=== PATIENT | male | born 1995 | race Hispanic/Latino ===

== ENCOUNTER 2017-07-19 02:11 | Inpatient (IN) | payer SELFPAY ==
[2017-07-19] MEDS ORDERED: NA CHLORIDE 0.9% 1,000 ML ONE (03:32)
[2017-07-19] MEDS ORDERED: ONDANSETRON 4 MG/2 ML VIAL ONE (03:32)
[2017-07-19] MEDS ORDERED: MORPHINE 4 MG/ML SYR ONE (03:32)
[2017-07-19 03:48] LABS: Absolute Lymphocytes (CBC) 0.7 K/uL (0.7-4.9); Absolute Monocytes 1.4 K/uL (0.1-1.3); Absolute Neutrophil 15.3 K/uL (1.8-8.0); Basophils % 0.4 % (0-1.3); Eosinophils % 0.2 % (0-4.4); Hematocrit 42.3 % (39.6-49.0); MCH 30.6 pg (27.0-35.0); MPV 10.3 fL (7.6-11.3); Monocytes % 7.9 % (3.3-12.3)
[2017-07-19 04:07] LABS: Bicarbonate 29 mEq/L (21-31); Glomerular Filtration Rate > 60 mL/min (>60); Glucose Level 127 mg/dL (65-120); Lipase 14 U/L (22-51); Potassium 3.6 mEq/L (3.6-5.0); Sodium Level 138 mEq/L (135-145)
[2017-07-19 04:13] LABS: ALT/SGPT 11 IU/L (10-60); AST/SGOT 16 IU/L (10-42); Albumin 4.4 g/dL (3.2-5.5); Amylase Level 65 U/L (28-100); BUN Blood Urea Nitrogen 11 mg/dL (6-20); Bilirubin Direct 0.2 mg/dL (0-0.2); Bilirubin Total 0.7 mg/dL (0.3-1.2); Glomerular Filtration Rate > 90 mL/min (=/>90); Protein, Total 7.4 g/dL (6.0-8.3)
[2017-07-19 04:24] LABS: Alkaline Phosphatase 112 IU/L (42-121)
[2017-07-19 05:28] LABS: Urine Amorphous Sediment 3+ /HPF (NONE SEEN); Urine Bacteria <20 /HPF (NONE SEEN); Urine Culture Reflex Order NOT NEEDED; Urine RBC <5 /HPF (NONE SEEN)
[2017-07-19 05:33] LABS: Blood Morphology Comment NOT SEEN (NOT SEEN); Platelet Estimate ADEQ
[2017-07-19 06:01] LABS: Urine Blood NEGATIVE (NEG); Urine Glucose NEGATIVE (NEG); Urine Protein NEGATIVE (NEG); Urine Specific Gravity 1.015 (1.005-1.030); Urine pH 7.5 (5.0-7.0)
--- NOTE | 2017-07-19 06:12 | ER ---
Nurse's Notes [facility] Name: Howard Diaz Jr Age: 22 yrs Sex: Male : 1995 Arrival Date: 07/19/2017 Time: 02:14 Bed 19 [facility] MD: Diagnosis: Diverticular disease of intestine Presentation: 07/19 02:19 Presenting complaint: Patient states: left lower quadrant pain X1 day. pt c/o N/V/D X1 ak1 day. Transition of care: patient was not received from another setting of care. Onset of symptoms was July 19, 2017. Care prior to arrival: None. 02:19 Method Of Arrival: Ambulatory ak1 02:19 Acuity: PETERSON 3 ak1 Historical: - Allergies: 02:20 No Known Allergies; ak1 - Home Meds: 02:20 None [Active]; ak1 - PMHx: 02:20 None; ak1 - PSHx: 02:20 Appendectomy; ak1 - Immunization history:: Adult Immunizations unknown. - Social history:: Smoking status: Patient uses tobacco products, smokes one-half pack cigarettes per day. Screenin:30 Abuse screen: Denies threats or abuse. Denies injuries from another. Nutritional lk1 screening: No deficits noted. Tuberculosis screening: No symptoms or risk factors identified. Fall Risk None identified. Assessment: 02:45 General: Appears in no apparent distress. Behavior is calm, cooperative, appropriate lk1 for age. Pain: Complains of pain in left lower quadrant Pain currently is 7 out of 10 on a pain scale. Quality of pain is described as crampy. Neuro: Level of Consciousness is awake, alert, obeys commands, Oriented to person, place, time, situation. Cardiovascular: Heart tones S1 S2 present Capillary refill is brisk Patient's skin is warm and dry. Respiratory: Airway is patent Respiratory effort is even, unlabored, Respiratory pattern is regular, symmetrical, Breath sounds are clear bilaterally. GI: Abdomen is non-distended, obese, Bowel sounds present X 4 quads. Abdomen is tender to palpation in suprapubic area and left lower quadrant Reports cramping. 07:15 Reassessment: Reassessment: Pt is resting in bed with guest at the bedside. jtb Respirations even and unlabored, no signs of distress noted. 08:15 Reassessment: Pt is resting in bed with eyes closed with guest in the bed with them. jtb Respiration even and unlabored, no signs of distress noted. Vital Signs: 02:20 BP 157 / 98; Pulse 88; Resp 18; Temp 98.9(O); Pulse Ox 98% on R/A; Weight 113.4 kg (R); ak1 Height 6 ft. 0 in. (182.88 cm) (R); Pain 9/10; 03:30 BP 141 / 95; Pulse 83; Resp 16; Pulse Ox 98% on R/A; lk1 05:00 BP 124 / 70; Pulse 83; Resp 16; Pulse Ox 95% on R/A; Pain 0/10; lk1 06:00 BP 132 / 63; Pulse 88; Resp 15; Pulse Ox 97% on R/A; lk1 06:30 BP 149 / 81; Pulse 84; Resp 16; Pulse Ox 97% on R/A; lk1 07:23 BP 134 / 76; Pulse 89; Resp 16; Pulse Ox 96% on R/A; mh5 07:30 BP 122 / 73; Pulse 88; Resp 16 S; Pulse Ox 94% ; jtb 02:20 Body Mass Index 33.91 (113.40 kg, 182.88 cm) ak1 05:00 sleeping lk1 ED Course: 02:14 Patient arrived in ED. al2 02:19 Triage completed. ak1 02:20 Arm band placed on Patient placed in an exam room, on a stretcher, Patient notified of ak1 wait time. 02:23 Manuelito Benavides MD is Attending Physician. gs 02:24 Matthew Gramajo PA is PHCP. cp 03:11 Soumya Elizabeth, ZAKI is Primary Nurse. lk1 03:15 Inserted saline lock: 20 gauge in right antecubital area, using aseptic technique. lk1 Blood collected. 03:30 Patient has correct armband on for positive identification. Bed in low position. Call lk1 light in reach. Side rails up X 1. Adult w/ patient. 06:11 Mat Ewing MD is Hospitalizing Provider. gs 07:15 Pulse ox on. NIBP on. jtb 08:15 No provider procedures requiring assistance completed. Patient admitted, IV remains in jtb place. Administered Medications: 03:00 Drug: morphine 4 mg Route: IVP; Site: right antecubital; lk1 03:40 Follow up: Response: No adverse reaction; Pain is decreased lk1 03:15 Drug: NS 0.9% 1000 ml Route: IV; Rate: 1 bolus; Site: right antecubital; lk1 04:10 Follow up: Response: No adverse reaction; IV Status: Completed infusion lk1 03:15 Drug: Zofran 4 mg Route: IVP; Site: right antecubital; lk1 03:40 Follow up: Response: No adverse reaction; Marked relief of symptoms; Nausea is decreasedk1 06:15 Drug: Rocephin - (cefTRIAXone) 1 grams Route: IVPB; Infused Over: 30 mins; Site: right lk1 antecubital; 06:35 Follow up: Response: No adverse reaction; IV Status: Completed infusion lk1 06:36 Drug: Flagyl 500 mg Volume: 100 ml; Route: IVPB; Rate: 200 ml/hr; Infused Over: 30 lk1 mins; Site: right antecubital; Outcome: 06:11 Decision to Hospitalize by Provider. 08:15 Admitted to Med/surg accompanied by tech, via wheelchair, room 211, with chart, Report jtb called to ZAKI Burciaga 08:15 Condition: stable 08:15 Instructed on the need for admit, Demonstrated understanding of instructions. 08:23 Patient left the ED. jtb Signatures: Ellen Rivera, RN RN ak1 Matthew Gramajo PA PA cp Kluge, Leah, RN RN lk1 Sanna Argueta 5 Manuelito Benavides MD MD gs Love, Angelica al2 Bryson, James j Corrections: (The following items were deleted from the chart) 08:21 08:15 Reassessment: Pt is resting in bed with eyes closed with significant other in the jtb bed with them. Respiration even and unlabored, no signs of distress noted. jtb 08:21 08:15 Reassessment: jtb jtb
--- NOTE | 2017-07-19 06:12 | EDPHYS ---
Physician Documentation [facility] Name: Howard Diaz Jr Age: 22 yrs Sex: Male : 1995 Arrival Date: 07/19/2017 Time: 02:14 Bed 19 Private MD: ED Physician Manuelito Benavides HPI: 07/19 02:51 This 22 yrs old Male presents to ER via Ambulatory with complaints of cp Abdominal Pain. 02:51 The patient presents with abdominal pain in the lower abdomen, right side worse than cp left. Onset: The symptoms/episode began/occurred and became worse today, upon awakening this morning. Associated signs and symptoms: Pertinent positives: diarrhea, vomiting, Pertinent negatives: constipation. Historical: - Allergies: 02:20 No Known Allergies; ak1 - Home Meds: 02:20 None [Active]; ak1 - PMHx: 02:20 None; ak1 - PSHx: 02:20 Appendectomy; ak1 - Immunization history:: Adult Immunizations unknown. - Social history:: Smoking status: Patient uses tobacco products, smokes one-half pack cigarettes per day. ROS: 02:55 Constitutional: Negative for body aches, chills, fever, poor PO intake. cp 02:55 Eyes: Negative for injury, pain, redness, and discharge. cp 02:55 ENT: Negative for drainage from ear(s), ear pain, sore throat, difficulty swallowing, difficulty handling secretions. 02:55 Cardiovascular: Negative for chest pain, edema, palpitations. 02:55 Respiratory: Negative for cough, shortness of breath, wheezing. 02:55 Abdomen/GI: Positive for abdominal pain, vomiting, diarrhea, of the right lower quadrant and left lower quadrant, left worse than right, Negative for constipation. 02:55 Back: Negative for pain at rest, pain with movement, radiated pain. 02:55 : Negative for urinary symptoms, testicular pain 02:55 Skin: Negative for cellulitis, rash. 02:55 Neuro: Negative for altered mental status, dizziness, headache, weakness. 02:55 All other systems are negative. Exam: 03:03 Constitutional: The patient appears in no acute distress, alert, awake, non-toxic, well cp developed, well nourished. 03:03 Head/Face: Normocephalic, atraumatic. Eyes: Pupils equal round and reactive to light, cp extra-ocular motions intact. Lids and lashes normal. Conjunctiva and sclera are non-icteric and not injected. Cornea within normal limits. Periorbital areas with no swelling, redness, or edema. ENT: Nares patent. No nasal discharge, no septal abnormalities noted. Tympanic membranes are normal and external auditory canals are clear. Oropharynx with no redness, swelling, or masses, exudates, or evidence of obstruction, uvula midline. Mucous membranes moist. Chest/axilla: Normal chest wall appearance and motion. Nontender with no deformity. No lesions are appreciated. 03:03 Cardiovascular: Rate: normal, Rhythm: regular. 03:03 Respiratory: the patient does not display signs of respiratory distress, Respirations: normal, no use of accessory muscles, no retractions, no splinting, no tachypnea, labored breathing, is not present, Breath sounds: are clear throughout, no decreased breath sounds, no stridor, no wheezing. 03:03 Abdomen/GI: Inspection: abdomen appears normal, Bowel sounds: active, all quadrants, Palpation: soft, in all quadrants, moderate abdominal tenderness, in the right lower quadrant, severe abdominal tenderness, in the left lower quadrant, rebound tenderness, is not appreciated, involuntary guarding, is elicited in the left lower quadrant. 03:03 Back: pain, is absent, ROM is normal. 03:03 : Male external genitalia: tenderness, is not appreciated. 03:03 Skin: cellulitis, is not appreciated, no rash present. 03:03 Neuro: Orientation: to person, place \T\ time. Mentation: lucid, able to follow commands, Cerebellar function: is grossly normal, Motor: moves all fours, strength is normal, Sensation: is normal. Vital Signs: 02:20 BP 157 / 98; Pulse 88; Resp 18; Temp 98.9(O); Pulse Ox 98% on R/A; Weight 113.4 kg (R); ak1 Height 6 ft. 0 in. (182.88 cm) (R); Pain 9/10; 03:30 BP 141 / 95; Pulse 83; Resp 16; Pulse Ox 98% on R/A; lk1 05:00 BP 124 / 70; Pulse 83; Resp 16; Pulse Ox 95% on R/A; Pain 0/10; lk1 06:00 BP 132 / 63; Pulse 88; Resp 15; Pulse Ox 97% on R/A; lk1 06:30 BP 149 / 81; Pulse 84; Resp 16; Pulse Ox 97% on R/A; lk1 07:23 BP 134 / 76; Pulse 89; Resp 16; Pulse Ox 96% on R/A; mh5 07:30 BP 122 / 73; Pulse 88; Resp 16 S; Pulse Ox 94% ; jtb 02:20 Body Mass Index 33.91 (113.40 kg, 182.88 cm) ak1 05:00 sleeping lk1 MDM: 02:27 Patient medically screened. cp 03:00 Differential diagnosis: appendicitis, cholecystitis, Cholelithiasis, diverticulitis, cp gastritis, GI Bleed, pancreatitis, Testicular Torsion, Ureterolithiasis, urinary tract infection. 07/19 02:53 Order name: Amylase, Serum cp 07/19 02:53 Order name: Basic Metabolic Panel 07/19 02:53 Order name: CBC with Diff cp 07/19 02:53 Order name: Creatinine for Radiology 07/19 02:53 Order name: Hepatic Function cp 07/19 02:53 Order name: Lipase cp 07/19 02:53 Order name: Urine Microscopic Only cp 07/19 03:58 Order name: CBC with Automated Diff; Complete Time: 06:04 EDMS 07/19 04:16 Interpretation: Normal except: WBC 17.4; HARRY% 87.5; LYM% 4.0; NEUT A 15.3. cp 07/19 04:07 Order name: Basic Metabolic Panel; Complete Time: 06:04 EDMS 07/19 04:07 Order name: Lipase; Complete Time: 06:04 EDMS 07/19 04:08 Order name: Creatinine (Radiology Only); Complete Time: 04:16 EDMS 07/19 04:13 Order name: Liver (Hepatic) Function; Complete Time: 06:04 EDMS 07/19 04:13 Order name: Amylase Level; Complete Time: 06:04 EDMS 07/19 04:50 Order name: Urine Dipstick--Ancillary (enter results) 07/19 02:53 Order name: IV Saline Lock; Complete Time: 03:28 cp 07/19 02:53 Order name: Labs collected and sent; Complete Time: 03:28 cp 07/19 02:53 Order name: Urine Dipstick-Ancillary (obtain specimen); Complete Time: 04:49 cp 07/19 04:16 Order name: CT Abd/Pelvis - W/Contrast cp 07/19 05:29 Order name: Urine Microscopic Only; Complete Time: 06:04 EDMS 07/19 05:33 Order name: Manual Differential; Complete Time: 06:04 EDMS 07/19 06:02 Order name: Urine Dipstick-Ancillary; Complete Time: 06:04 EDMS Administered Medications: 03:00 Drug: morphine 4 mg Route: IVP; Site: right antecubital; lk1 03:40 Follow up: Response: No adverse reaction; Pain is decreased lk1 03:15 Drug: NS 0.9% 1000 ml Route: IV; Rate: 1 bolus; Site: right antecubital; lk1 04:10 Follow up: Response: No adverse reaction; IV Status: Completed infusion lk1 03:15 Drug: Zofran 4 mg Route: IVP; Site: right antecubital; lk1 03:40 Follow up: Response: No adverse reaction; Marked relief of symptoms; Nausea is decreasedlk1 06:15 Drug: Rocephin - (cefTRIAXone) 1 grams Route: IVPB; Infused Over: 30 mins; Site: right lk1 antecubital; 06:35 Follow up: Response: No adverse reaction; IV Status: Completed infusion lk1 06:36 Drug: Flagyl 500 mg Volume: 100 ml; Route: IVPB; Rate: 200 ml/hr; Infused Over: 30 lk1 mins; Site: right antecubital; Disposition: 06:11 Co-signature as Attending Physician, Manuelito Benavides MD pretty tender llq will admit give abx. Disposition: 07/19/17 06:11 Hospitalization ordered by Mat Ewing for Inpatient Admission. Preliminary diagnosis is Diverticular disease of intestine. - Bed requested for Telemetry/MedSurg (Inpatient). - Status is Inpatient Admission. jtb - Condition is Stable. - Problem is new. - Symptoms have improved. UTI on Admission? No Signatures: Dispatcher [employer] EDMS Jagruti Jennings RN RN mw Krenek, Amber RN RN ak1 Matthew Gramajo PA PA cp Kluge, Leah, RN RN lk1 Manuelito Benavides MD MD gs Bryson, James jtb
[2017-07-19] MEDS ORDERED: CEFTRIAXONE/SWI 1gm 1 GM/10 ML SYR ONE (06:43)
[2017-07-19] MEDS ORDERED: METRONIDAZOLE 500mg IVPB 500 MG/100 ML BAG IV ONE (06:43)
[2017-07-19] MEDS ORDERED: ONDANSETRON 4 MG/2 ML VIAL IV PRN (07:26)
[2017-07-19] MEDS ORDERED: ACETAMINOPHEN 500 MG TAB PO PRN (07:26)
[2017-07-19] MEDS ORDERED: ALPRAZOLAM 0.25 MG TABLET PO PRN (07:26)
[2017-07-19 08:43] VITALS: O2SAT 95; BMI 30.7
[2017-07-19] MEDS ORDERED: METOPROLOL TAR 25 MG TAB PO SCH (09:00)
[2017-07-19] MEDS: ENOXAPARIN 40 MG/0.4 ML SQ SCH (09:08)
[2017-07-19] MEDS: HYDROCODONE/APAP 10/325 TAB PO PRN (09:10)
[2017-07-19] MEDS: NA CHLORIDE 0.9% 1,000 ML IV SCH ×3 (09:10→20:11)
[2017-07-19] MEDS: Levofloxacin500mg IV 500 MG/100 ML BAG IV SCH (09:10)
--- NOTE | 2017-07-19 09:30 | P.HP ---
Certification for Inpatient Patient admitted to: Inpatient With expected LOS: >2 Midnights Patient will require the following post-hospital care: None Practitioner: I am a practitioner with admitting privileges, knowledge of patient current condition, hospital course, and medical plan of care. Services: Services provided to patient in accordance with Admission requirements found in Title 42 Section 412.3 of the Code of Federal Regulations Patient History Date of Service: 07/19/17 Reason for admission: Abdominal pain with intractable nausea and vomiting along with diarrhea History of Present Illness: Patient is a 22-year-old gentleman who came into the hospital with abdominal pain. He states this started around the afternoon and progressively got worse throughout the day. He had gone to sleep when he woke up with neck is without pain. The pain within the left lower quadrant. He had nausea and vomiting along with diarrhea. He came into the emergency room for further evaluation because the pain was unbearable. In the emergency room, he had a CT of the abdomen and pelvis which has been apparently interpreted as diverticulitis. Patient is only 22 years old and diverticulosis is very uncommon at this age. Will continue with IV antibiotic therapy and will check stool studies. On review of patient's medications he has apparently been on antibiotics from the sure exactly when he stopped taking them. Will evaluate him for C difficile as well. Allergies NKDA Allergy (Uncoded 05/21/15 00:41) Unknown No Known Allergies Allergy (Uncoded 02/10/17 15:13) Unknown - Past Medical/Surgical History Has patient received pneumonia vaccine in the past: No Diabetic: No -: history of GI issues -: lap appy - Family History Father Medical History: Other (see notes) Notes: no history Mother Medical History: Other (see notes) Notes: no history - Social History Smoking Status: Current every day smoker Alcohol use: Yes CD- Drugs: Yes Caffeine use: Yes Place of Residence: Home Review of Systems 10-point ROS is otherwise unremarkable Physical Examination - Vital Signs Temperature: 98.9 F Blood Pressure: 122/73 Pulse: 88 Respirations: 16 Pulse Ox (%): 95 - Physical Exam General: Alert, In no apparent distress, Oriented x3 HEENT: Atraumatic, PERRLA, Mucous membr. moist/pink, EOMI, Sclerae nonicteric Neck: Supple, 2+ carotid pulse no bruit, No LAD, Without JVD or thyroid abnormality Respiratory: Clear to auscultation bilaterally, Normal air movement Cardiovascular: Regular rate/rhythm, Normal S1 S2 Gastrointestinal: Normal bowel sounds, Soft and benign, Non-distended, No rebound, No guarding, Tenderness ( left lower quadrant) Musculoskeletal: No clubbing, No swelling, No tenderness Integumentary: No rashes Neurological: Normal gait, Normal speech, Normal strength at 5/5 x4 extr, Normal tone, Sensation intact, Cranial nerves 3-12 intact, Normal affect Lymphatics: No axilla or inguinal lymphadenopathy - Studies Laboratory Data (last 24 hrs) 07/19/17 03:21: Creatinine 0.90 07/19/17 03:21: WBC 17.4 H, Hgb 14.4, Hct 42.3, Plt Count 188 07/19/17 03:21: Sodium 138, Potassium 3.6, BUN 11, Creatinine 0.89, Glucose 127 H, Total Bilirubin 0.7, AST 16, ALT 11, Alkaline Phosphatase 112, Amylase 65, Lipase 14 L Assessment & Plan - Problems (Diagnosis) (1) Abdominal pain Current Visit: Yes Status: Acute (2) Intractable nausea and vomiting Current Visit: Yes Status: Acute (3) Diarrhea Current Visit: Yes Status: Acute - Plan -aggressive IV hydration -IV antibiotics -may eventually need an outpatient colonoscopy -pain controlled -stool studies -surgery consultation if pain does not improve -CT abdomen pelvis pending Discharge Plan: Home Plan to discharge in: Greater than 2 days - Advance Directives Does patient have a Living Will: No Does patient have a Durable POA for Healthcare: No - Code Status/Comfort Care Code Status Assessed: Yes Code Status: Full Code Critical Care: No Time Spent Managing PTS Care (In Minutes): 45
[2017-07-19] MEDS ORDERED: HYDRALAZINE HCL 20 MG/ML VIAL IV PRN (11:11)
[2017-07-19] MEDS ORDERED: SODIUM CHLORIDE 0.9% 10ML INJ IV PRN (11:13)
--- NOTE | 2017-07-19 11:15 | P.PN ---
Subjective Date of Service: 07/19/17 Primary Care Provider: None Chief Complaint: Abdominal pain with intractable nausea and vomiting along with diarrhea Subjective: Other (Patient still with mild pain to the abdomen. No nausea or vomiting noted.) Physical Examination - Vital Signs Temperature: 98.9 F Blood Pressure: 122/73 Pulse: 88 Respirations: 16 Pulse Ox (%): 95 - Physical Exam General: Alert, In no apparent distress, Oriented x3, Cooperative HEENT: Atraumatic, Mucous membr. moist/pink Neck: Supple Respiratory: Clear to auscultation bilaterally, Normal air movement Cardiovascular: Normal pulses, Regular rate/rhythm Gastrointestinal: Normal bowel sounds, Soft and benign, Non-distended, No masses , No rebound, No guarding, Tenderness (Pain to the left quadrant with palpation) Musculoskeletal: No erythema, No tenderness, No warmth Integumentary: No tenderness/swelling, No erythema, No warmth, No cyanosis Neurological: Normal speech, Normal strength at 5/5 x4 extr, Normal tone, Normal affect - Studies Laboratory Data (last 24 hrs) 07/19/17 03:21: Creatinine 0.90 07/19/17 03:21: WBC 17.4 H, Hgb 14.4, Hct 42.3, Plt Count 188 07/19/17 03:21: Sodium 138, Potassium 3.6, BUN 11, Creatinine 0.89, Glucose 127 H, Total Bilirubin 0.7, AST 16, ALT 11, Alkaline Phosphatase 112, Amylase 65, Lipase 14 L Medications List Reviewed: Yes Assessment & Plan - Problems (Diagnosis) (1) Diverticulitis Current Visit: Yes Status: Acute Plan: Suspect left-sided diverticulitis. CT scan final results pending. Preliminary report shows diverticulitis. Will continue with IV antibiotic therapy, IV fluids. Will keep the patient NPO. Education addressed. Surgery consulted to further assess. Patient will need colonoscopy in 4-6 weeks. Will check urine drug screen as the nurses report that he admits taking marijuana. (2) History of hypertension Current Visit: Yes Status: Chronic Plan: Will provide IV medication as needed. (3) Abdominal pain Current Visit: Yes Status: Acute Plan: As above. Will monitor closely. Qualifiers: Abdominal location: left lower quadrant Qualified Code(s): R10.32 - Left lower quadrant pain Discharge Plan: Home Plan to discharge in: Greater than 2 days - Code Status/Comfort Care Code Status Assessed: Yes Time Spent Managing Pts Care (In Minutes): 55
--- NOTE | 2017-07-19 12:01 | RAD REPORT ---
EXAM DESCRIPTION: CTAbdomen Pelvis W Contrast - 07/19/2017 6:58 am CLINICAL HISTORY: Abdominal pain. COMPARISON: None. TECHNIQUE: Biphasic CT imaging of the abdomen and pelvis was performed with 100 ml non-ionic IV cont rast. All CT scans are performed using dose optimization technique as appropriate and may include automated exposure control or mA/KV adjustment according to patient size. FINDINGS: The lung bases are clear. The liver, spleen, pancreas, adrenal glands and kidneys are within normal limits. No bowel obstruction, free air, free fluid or abscess. Mild to moderate inflammatory changes are seen surrounding the proximal sigmoid colon in the left lower quadrant. A prominent diverticulum is prese nt in this location. Appendectomy. No evidence of significant lymphadenopathy. No suspicious bony findings. IMPRESSION: [id number] proximal sigmoid acute diverticulitis is suspected. No peridiverticular abscess.
[2017-07-19] MEDS: METRONIDAZOLE 500mg IVPB 500 MG/100 ML BAG IV SCH ×2 (13:04→17:57)
[2017-07-19] MEDS: FENTANYL CITR 100 MCG/2 ML IV PRN ×2 (14:41→21:48)
[2017-07-19 18:22] LABS: Barbiturates NEGATIVE; Benzodiazepines NEGATIVE; Cocaine NEGATIVE; METHAMPHETAM NEGATIVE; Opiates POSITIVE; Phencyclidine NEGATIVE; THC Cannibis POSITIVE
[2017-07-20] MEDS: METRONIDAZOLE 500mg IVPB 500 MG/100 ML BAG IV SCH ×3 (00:44→13:36)
[2017-07-20] MEDS: FENTANYL CITR 100 MCG/2 ML IV PRN (04:09)
[2017-07-20 05:08] LABS: Absolute Lymphocytes (CBC) 1.6 K/uL (0.7-4.9); Absolute Monocytes 1.7 K/uL (0.1-1.3); Absolute Neutrophil 12.7 K/uL (1.8-8.0); Basophils % 0.2 % (0-1.3); Eosinophils % 0.4 % (0-4.4); Hematocrit 40.6 % (39.6-49.0); Lymphocytes % 9.7 % (15.3-44.8); MCH 30.7 pg (27.0-35.0); MCV 89.2 fL (80-100); MPV 9.7 fL (7.6-11.3); Monocytes % 10.8 % (3.3-12.3); RBC Red Blood Cell Count 4.55 M/uL (4.33-5.43)
[2017-07-20 05:31] LABS: ALT/SGPT 10 IU/L (10-60); AST/SGOT 13 IU/L (10-42); Albumin 3.8 g/dL (3.2-5.5); Bicarbonate 28 mEq/L (21-31); Potassium 4.4 mEq/L (3.6-5.0); Protein, Total 6.7 g/dL (6.0-8.3); Sodium Level 139 mEq/L (135-145)
[2017-07-20 05:34] LABS: Alkaline Phosphatase 94 IU/L (42-121); BUN Blood Urea Nitrogen 8 mg/dL (6-20); Bilirubin Total 1.1 mg/dL (0.3-1.2); Glomerular Filtration Rate > 90 mL/min (=/>90); Glucose Level 100 mg/dL (65-120); Magnesium 1.9 mg/dL (1.8-2.5); Phosphorus 2.4 mg/dL (2.5-4.3)
[2017-07-20] MEDS ORDERED: POTASSIUM PHOS IN 0.9 % NACL 15 MMOL/250 ML BAG IV ONE (06:06)
[2017-07-20] MEDS: Levofloxacin500mg IV 500 MG/100 ML BAG IV SCH (08:56)
[2017-07-20] MEDS: ENOXAPARIN 40 MG/0.4 ML SQ SCH (08:57)
[2017-07-20] MEDS: HYDROCODONE/APAP 10/325 TAB PO PRN ×2 (08:59→13:36)
[2017-07-20] MEDS ORDERED: PANTOPRAZOLE 40 MG INJ IVP SCH (09:00)
--- NOTE | 2017-07-20 11:10 | P.CNS ---
Date of Consult: 07/19/17 Reason for Consult: LLQ pain Primary Care Provider: None Chief Complaint: Abdominal pain with intractable nausea and vomiting along with diarrhea History of Present Illness: 22 y/o male with 24h hx of abd pain LLQ and inguinal area associated with N V. Pt denies prior episode, no recent traveling out of the country and no family member sick at home. Allergies NKDA Allergy (Uncoded 05/21/15 00:41) Unknown No Known Allergies Allergy (Uncoded 02/10/17 15:13) Unknown Home Medications: NK [No Home Meds] 07/19/17 - Past Medical/Surgical History Diabetic: No -: history of GI issues -: lap appy - Family History Father Medical History: Other (see notes) Notes: no history Mother Medical History: Other (see notes) Notes: no history - Social History Smoking Status: Current every day smoker Alcohol use: Yes CD- Drugs: Yes Caffeine use: Yes Place of Residence: Home Review of Systems General: Unremarkable Eyes: Unremarkable ENT: Unremarkable Respiratory: Unremarkable Cardiovascular: Unremarkable Gastrointestinal: Nausea, Vomiting, Abdominal Pain, Diarrhea, Distention, Melena (nnno), Hematochezia (no), As per HPI Genitourinary: Dysuria (no), Unremarkable Musculoskeletal: Unremarkable Integumentary: Unremarkable Neurological: Unremarkable Physical Examination Temp Pulse Resp BP Pulse Ox 98.3 F 84 18 128/61 97 07/20/17 04:00 07/20/17 04:00 07/20/17 04:00 07/20/17 04:00 07/20/17 04:00 General: Alert, Oriented x3, Acute distress HEENT: Normocephalic, PERRLA, EOMI Neck: Supple Respiratory: Normal air movement Cardiovascular: No edema, Normal pulses Gastrointestinal: No masses, No rebound, Tenderness (LLQ), Guarding Musculoskeletal: No erythema, No tenderness, No warmth Integumentary: No rashes, No breakdown Neurological: Normal speech, Cranial nerves 3-12 intact Lymphatics: No axilla or inguinal lymphadenopathy External genitalia: Non-tender Rectal: Deferred cbc chem 7 reviewed Imagings Data: CT pending Conclusions/Impression: CT result, r/o diverticulitis IV abx NPO
[2017-07-20] MEDS: NA CHLORIDE 0.9% 1,000 ML IV SCH (14:00)
--- NOTE | 2017-07-20 15:44 | PN ---
Date of Progress Note: 07/20/2017 Diagnosis: Acute diverticulitis. Subjective: This is the case of a 22-year-old, patient with that sigmoid diverticulitis. The patien t doing better. Hungry. Passing flatus. Review of Systems: Constitutional: Denies any fever. Denies any chills. Respiratory: Denies any shortness of breath. Gastrointestinal: No nausea. No vomiting. Diarrhea feels better. No watery diarrhea and no bleedi ng. Genitourinary: Denies any dysuria, hematuria. Physical Examination: General: The patient is awake and alert. No distress. HEENT: Pupils are equal and reactive, anicteric. Neck: Supple. Chest: Clear. Abdomen: Left lower quadrant tenderness is better. No rebound. Laboratory Data: Blood work shows WBC count of 16.1 with platelets of 153. CAT scan of abdomen and pelvis shows sigmoid diverticulitis. Assessment: A 22-year-old patient with diverticulitis. The patient is improving and getting antibio tics. If he tolerates diet and eventually go home, then he was advised to follow in our office or ev en Colorectal, since we have to discuss with him the pros and cons of elective resection. He was adv ised also the importance of keeping a low feed on his diet until a further workup was done by the lounge car attendant that may include a c olonoscopy. LAUREANO Voice ID: [id number] Report ID: [id number]
--- NOTE | 2017-07-20 15:58 | P.DS ---
Admission Date: 07/19/17 Discharge Date: 07/20/17 Primary Care Provider: None Disposition: ROUTINE DISCHARGE Discharge Condition: GOOD Reason for Admission: Abdominal pain with intractable nausea and vomiting along with diarrhea Consultations: Surgery-Dr. Argueta Procedures: CT scan: FINDINGS: The lung bases are clear. The liver, spleen, pancreas, adrenal glands and kidneys are within normal limits. No bowel obstruction, free air, free fluid or abscess. Mild to moderate inflammatory changes are seen surrounding the proximal sigmoid colon in the left lower quadrant. A prominent diverticulum is present in this location. Appendectomy. No evidence of significant lymphadenopathy. No suspicious bony findings. IMPRESSION: [id number]-[id number] proximal sigmoid acute diverticulitis is suspected. No peridiverticular abscess. - Problems (1) Diverticulitis Onset Date: 07/20/17 Current Visit: Yes Status: Acute (2) History of hypertension Onset Date: 07/20/17 Current Visit: Yes Status: Chronic (3) Abdominal pain Onset Date: 07/20/17 Current Visit: Yes Status: Acute Qualifiers: Abdominal location: left lower quadrant Qualified Code(s): R10.32 - Left lower quadrant pain (4) Obesity Current Visit: Yes Status: Chronic Qualifiers: Obesity type: due to excess calories Obesity classification: adult class 1 (BMI 30 - 34.9) Serious obesity comorbidity presence: with serious comorbidity Body mass index: BMI 30.0-30.9 Qualified Code(s): E66.09 - Other obesity due to excess calories; Z68.30 - Body mass index (BMI) 30.0-30.9, adult; Z68.30 - Body mass index (BMI) 30.0-30.9, adult (5) Tetrahydrocannabinol (THC) use disorder, mild, abuse Current Visit: Yes Status: Chronic Brief History of Present Illness: 22-year-old male presented with acute abdominal pain to the left lower quadrant with noted nausea and vomiting. Patient reported no prior use of antibiotics. No prior infection noted. Patient had not been out of the country. The patient was evaluated the emergency room. White count was elevated. He was found to have sigmoid diverticulitis. The patient was admitted for further assessment and treatment. Hospital Course: During the course of his stay the patient was evaluated by surgery. Surgical intervention was not needed. His diet was advanced. During the course of his stay. The patient denied any nausea or vomiting at discharge. His pain improved during the course of the stay. At discharge patient will continue with Cipro 500 mg 1 pill twice daily and Flagyl 500 mg 1 pill 3 times a day for 10 days. The patient will follow up with surgery within 1 week to follow up this hospitalization. Recommendation is for the patient to have a colonoscopy in 4-6 weeks to further address. Dietary changes were addressed with the patient. Patient will continue with a diverticular diet. Patient will be provided a limited supply of pain medication-tramadol 50 mg 1 pill 3 times a day as needed for pain. Patient may use [id number] Tylenol or ibuprofen for pain. The patient had a positive drug screen for THC. THC cessation education was addressed in detail with the patient. The patient understands. At discharge the patient and family have a great deal of questions. These questions were answered. The patient will be provided education on diverticulitis and THC cessation at discharge. The importance of follow up with a GI specialist was addressed in detail with the patient. The importance of a colonoscopy in the future was also addressed. The patient had been counseled by surgery that if his condition worsens the patient may require colectomy. The CT scan showed no abscess. At discharge his white count improved. Electrolytes were within normal range. Vital Signs/Physical Exam: Temp Pulse Resp BP Pulse Ox 98.8 F 76 16 132/77 99 07/20/17 12:00 07/20/17 12:00 07/20/17 12:00 07/20/17 12:00 07/20/17 12:00 General: Alert, In no apparent distress, Oriented x3, Cooperative HEENT: Atraumatic, Mucous membr. moist/pink Neck: Supple Respiratory: Clear to auscultation bilaterally, Normal air movement Cardiovascular: Normal pulses, Regular rate/rhythm Gastrointestinal: Normal bowel sounds, Soft and benign, Tenderness (Pain to the left lower quadrant improved) Musculoskeletal: No contractures Neurological: Normal speech, Normal strength at 5/5 x4 extr, Normal tone, Normal affect Laboratory Data at Discharge: WBC 16.1 K/uL (4.3-10.9) H 07/20/17 04:52 Hgb 14.0 g/dL (13.6-17.9) 07/20/17 04:52 Hct 40.6 % (39.6-49.0) 07/20/17 04:52 Plt Count 163 K/uL (152-406) 07/20/17 04:52 Sodium 139 mEq/L (135-145) 07/20/17 04:52 Potassium 4.4 mEq/L (3.6-5.0) 07/20/17 04:52 BUN 8 mg/dL (6-20) 07/20/17 04:52 Creatinine 0.91 mg/dL (0.61-1.24) 07/20/17 04:52 Glucose 100 mg/dL (65-120) 07/20/17 04:52 Phosphorus 2.4 mg/dL (2.5-4.3) L 07/20/17 04:52 Magnesium 1.9 mg/dL (1.8-2.5) D 07/20/17 04:52 Total Bilirubin 1.1 mg/dL (0.3-1.2) 07/20/17 04:52 AST 13 IU/L (10-42) 07/20/17 04:52 ALT 10 IU/L (10-60) 07/20/17 04:52 Alkaline Phosphatase 94 IU/L (42-121) 07/20/17 04:52 Amylase 65 U/L (28-100) 07/19/17 03:21 Lipase 14 U/L (22-51) L 07/19/17 03:21 Home Medications: Ciprofloxacin HCl [Cipro 500 MG Tablet] 500 mg PO BID #20 tab 07/20/17 Famotidine [Pepcid AC] 20 mg PO BID #60 tablet 07/20/17 Metronidazole [Flagyl] 500 mg PO Q8H #30 tablet 07/20/17 Tramadol HCl [Ultram] 50 mg PO TID PRN #20 tablet 07/20/17 New Medications: Ciprofloxacin HCl [Cipro 500 MG Tablet] 500 mg PO BID #20 tab Famotidine [Pepcid AC] 20 mg PO BID #60 tablet Metronidazole [Flagyl] 500 mg PO Q8H #30 tablet Tramadol HCl [Ultram] 50 mg PO TID PRN #20 tablet PRN Reason: Pain Patient Discharge Instructions: 1. Patient will need a follow up with his PCP in 1 week to follow up this hospitalization. 2. Patient presented with abdominal pain. Patient found to have sigmoid diverticulitis. Patient evaluated by surgery. No intervention was needed. At discharge patient will continue with a soft GI diet. This can be adjusted over time. At discharge she will continue with Cipro 500 mg 1 pill twice daily and Flagyl 5 mg 1 pill 3 times a day for 10 days. Recommendation is for the patient to follow up with surgery in 1-2 weeks to follow up this hospitalization. Patient will need colonoscopy in 4-6 weeks to further monitor and address. Education on diverticulitis will be provided. A limited supply of pain medication-tramadol 50 mg 1 pill 3 times a day as needed will be provided. 3. Patient was positive for marijuana. Marijuana cessation addressed in detail. Education will be provided. 4. Patient may continue with Pepcid 20 mg 1 pill twice daily. 5. Patient may return to work in 1 week. Diet: GI soft diet, advanced to diverticular diet Activity: Ad leidy Time spent managing pt's care (in minutes): 55
[2017-07-20 17:53] VITALS: BP 146/83; TEMP 98.6
== END 2017-07-20 17:40 | disposition home or self-care (01) | DRG 392 ==
LOC: ER 02:11 → ERHOLD 06:13 → 2ND 08:11
PROVIDERS: ADMIT Hospitalist; ATTEND Family Medicine
DX: K57.32 Diverticulitis of large intestine without perforation or abscess without bleeding (principal); I10 Essential (primary) hypertension; E66.9 Obesity, unspecified; F17.200 Nicotine dependence, unspecified, uncomplicated; F12.10 Cannabis abuse, uncomplicated
CPT/HCPCS: 36415; 74177; 80048; 80053; 80076; 80307; 81003; 81015; 82150; 83690; 83735; 84100; 85025; 96361; 96365; 96375; 99285; C9113; J0696; J1650; J2405; J3010; J7030; Q9967

== ENCOUNTER 2018-10-25 06:20 | Emergency (ER) | payer SELFPAY ==
[2018-10-25] MEDS ORDERED: ALBUTEROL 2.5 MG/3 ML NEB SOL ONE (06:52)
[2018-10-25] MEDS ORDERED: IPRATROPIUM BROM 0.5MG/2.5ML ONE (06:52)
--- NOTE | 2018-10-25 07:25 | ER ---
Nurse's Notes [facility] Name: Howard Diaz Jr Age: 23 yrs Sex: Male : 1995 Arrival Date: 10/25/2018 Time: 06:27 Bed 5 Private MD: Diagnosis: Bronchitis, not specified as acute or chronic Presentation: 10/25 06:30 Presenting complaint: Patient states: spitting out blood started 1 week ago. i feel rr5 congested and having productive cough with phlegm. no fever. 06:30 Method Of Arrival: Ambulatory rr5 06:30 Transition of care: patient was not received from another setting of care. Onset of rr5 symptoms was October 18, 2018. Risk Assessment: Do you want to hurt yourself or someone else? Patient reports no desire to harm self or others. Initial Sepsis Screen: Does the patient meet any 2 criteria? No. Patient's initial sepsis screen is negative. Does the patient have a suspected source of infection? No. Patient's initial sepsis screen is negative. Care prior to arrival: None. 06:30 Acuity: PETERSON 3 rr5 Historical: - Allergies: 06:40 No Known Allergies; rr5 - Home Meds: 06:40 None [Active]; rr5 - PMHx: 06:40 None; rr5 - PSHx: 06:40 None; rr5 - Immunization history:: Adult Immunizations up to date. - Social history:: Smoking status: Patient uses tobacco products, cigars, Patient uses alcohol, occasionally. Patient/guardian denies using street drugs. - Ebola Screening: : Patient negative for fever greater than or equal to 101.5 degrees Fahrenheit, and additional compatible Ebola Virus Disease symptoms Patient denies exposure to infectious person Patient denies travel to an Ebola-affected area in the 21 days before illness onset. Screenin:35 Abuse screen: Denies threats or abuse. Denies injuries from another. Nutritional rr5 screening: No deficits noted. Tuberculosis screening: No symptoms or risk factors identified. Fall Risk None identified. Total Teran Fall Scale indicates No Risk (0-24 pts). Assessment: 06:30 General: Appears in no apparent distress. comfortable, Behavior is calm, cooperative, rr5 appropriate for age. Pain: Complains of pain in throat Pain does not radiate. Pain Quality of pain is described as aching, Pain began gradually. Neuro: Level of Consciousness is awake, alert, obeys commands, Oriented to person, place, time, situation, Appropriate for age. Cardiovascular: Capillary refill < 3 seconds Patient's skin is warm and dry. Respiratory: Reports cough that is congestion and spitting out blood for 1 week Airway is patent Respiratory effort is even, unlabored, Respiratory pattern is regular, symmetrical. GI: No signs and/or symptoms were reported involving the gastrointestinal system. : No signs and/or symptoms were reported regarding the genitourinary system. EENT: Throat is clear with gag reflex present. Derm: No signs and/or symptoms reported regarding the dermatologic system. Musculoskeletal: Capillary refill < 3 seconds, Range of motion: intact in all extremities. Vital Signs: 06:30 BP 139 / 85; Pulse 98; Resp 17; Temp 98.1; Pulse Ox 98% ; Weight 113.4 kg; Height 6 ft. rr5 0 in. (182.88 cm); 06:30 Body Mass Index 33.91 (113.40 kg, 182.88 cm) rr5 ED Course: 06:27 Patient arrived in ED. am2 06:28 Ginger Cooley FNP-C [facility]. kb 06:28 Abrahan Muhammad MD is Attending Physician. kb 06:30 Arm band placed on. rr5 06:40 Strep swab sent to lab. rr5 06:42 Triage completed. rr5 06:45 Patient has correct armband on for positive identification. Bed in low position. Side rr5 rails up X2. Pulse ox on. NIBP on. 06:48 Chest Pa And Lat (2 Views) XRAY In Process Unspecified. EDMS 06:55 Initial Neb Treatment Given as ordered Patient was instructed and evaluated on rr5 procedure Patient tolerated procedure well without adverse effect. 07:06 Thaddeus Hussein, RN is Primary Nurse. sg 07:30 No provider procedures requiring assistance completed. Patient did not have IV access sg during this emergency room visit. Administered Medications: 06:55 Drug: DuoNeb (3:1) (2.5 mg - 0.5 mg) 3 ml Route: Nebulizer; rr5 Outcome: 07:25 Discharge ordered by . kb 07:30 Discharged to home ambulatory, with family. sg 07:30 Condition: good 07:30 Discharge instructions given to patient, Instructed on discharge instructions, follow up and referral plans. safety practices, Demonstrated understanding of instructions, follow-up care, medications, Prescriptions given X 5 07:39 Patient left the ED. sg Signatures: Dispatcher [employer] EDGinger Hart, BUSHEL WORKER-C JOHANNA-Thaddeus Solano RN RN sg Sol Huber am2 Percy Martini RN RN rr5
--- NOTE | 2018-10-25 07:26 | EDPHYS ---
Physician Documentation [facility] Name: Howard Diaz Jr Age: 23 yrs Sex: Male : 1995 Arrival Date: 10/25/2018 Time: 06:27 Bed 5 Private MD: ED Physician Abrahan Muhammad HPI: 10/25 06:35 This 23 yrs old Male presents to ER via Unassigned with complaints of Cough, kb spitting up blood. 06:35 The patient or guardian reports cough, that is constant, described as moderate, with kb productive sputum. Onset: The symptoms/episode began/occurred 1 week(s) ago. Severity of symptoms: At their worst the symptoms were moderate, in the emergency department the symptoms are unchanged. Modifying factors: The symptoms are alleviated by nothing, the symptoms are aggravated by nothing. Associated signs and symptoms: Pertinent positives: sore throat, Pertinent negatives: chest pain, diarrhea, ear ache, fever, nausea, rhinorrhea, vomiting. The patient has not experienced similar symptoms in the past. The patient has not recently seen a physician. Pt reports cough, congestion and sore throat for a week. States symptoms got worse about 4 days ago. This morning noticed blood in his sputum when he coughed . Historical: - Allergies: 06:40 No Known Allergies; rr5 - Home Meds: 06:40 None [Active]; rr5 - PMHx: 06:40 None; rr5 - PSHx: 06:40 None; rr5 - Immunization history:: Adult Immunizations up to date. - Social history:: Smoking status: Patient uses tobacco products, cigars, Patient uses alcohol, occasionally. Patient/guardian denies using street drugs. - Ebola Screening: : Patient negative for fever greater than or equal to 101.5 degrees Fahrenheit, and additional compatible Ebola Virus Disease symptoms Patient denies exposure to infectious person Patient denies travel to an Ebola-affected area in the 21 days before illness onset. ROS: 06:35 Constitutional: Negative for fever, chills, and weight loss, Neck: Negative for injury, kb pain, and swelling, Cardiovascular: Negative for chest pain, palpitations, and edema, Abdomen/GI: Negative for abdominal pain, nausea, vomiting, diarrhea, and constipation, Back: Negative for injury and pain, MS/Extremity: Negative for injury and deformity, Skin: Negative for injury, rash, and discoloration, Neuro: Negative for headache, weakness, numbness, tingling, and seizure. 06:35 ENT: Positive for sore throat. 06:35 Respiratory: Positive for cough. Exam: 06:35 Constitutional: This is a well developed, well nourished patient who is awake, alert, kb and in no acute distress. Head/Face: Normocephalic, atraumatic. Neck: Trachea midline, no thyromegaly or masses palpated, and no cervical lymphadenopathy. Supple, full range of motion without nuchal rigidity, or vertebral point tenderness. No Meningismus. Chest/axilla: Normal chest wall appearance and motion. Nontender with no deformity. No lesions are appreciated. Cardiovascular: Regular rate and rhythm with a normal S1 and S2. No gallops, murmurs, or rubs. Normal PMI, no JVD. No pulse deficits. Abdomen/GI: Soft, non-tender, with normal bowel sounds. No distension or tympany. No guarding or rebound. No evidence of tenderness throughout. Back: No spinal tenderness. No costovertebral tenderness. Full range of motion. Skin: Warm, dry with normal turgor. Normal color with no rashes, no lesions, and no evidence of cellulitis. MS/ Extremity: Pulses equal, no cyanosis. Neurovascular intact. Full, normal range of motion. Neuro: Awake and alert, GCS 15, oriented to person, place, time, and situation. Cranial nerves II-XII grossly intact. Motor strength 5/5 in all extremities. Sensory grossly intact. Cerebellar exam normal. Normal gait. 06:35 ENT: Posterior pharynx: Airway: normal, no evidence of obstruction, Tonsils: are normal in appearance, Uvula: normal, midline, swelling, is not appreciated, erythema, that is moderate. 06:35 Respiratory: the patient does not display signs of respiratory distress, Respirations: normal, Breath sounds: rhonchi, that are mild, are scattered. Vital Signs: 06:30 BP 139 / 85; Pulse 98; Resp 17; Temp 98.1; Pulse Ox 98% ; Weight 113.4 kg; Height 6 ft. rr5 0 in. (182.88 cm); 06:30 Body Mass Index 33.91 (113.40 kg, 182.88 cm) rr5 MDM: 06:28 Patient medically screened. kb 06:40 Data reviewed: vital signs, nurses notes. Data interpreted: Pulse oximetry: on room air kb is 100 %. Interpretation: normal. 07:24 Counseling: I had a detailed discussion with the patient and/or guardian regarding: the kb historical points, exam findings, and any diagnostic results supporting the discharge/admit diagnosis, lab results, radiology results, the need for outpatient follow up, a family practitioner, to return to the emergency department if symptoms worsen or persist or if there are any questions or concerns that arise at home. 07:30 ED course: Pt does smoke marijuana daily. Will prescribe antibiotic due to smoking kb status. 10/25 06:32 Order name: Strep; Complete Time: 06:59 kb 10/25 07:22 Order name: Throat Culture EDMS 10/25 06:32 Order name: Chest Pa And Lat (2 Views) XRAY kb Administered Medications: 06:55 Drug: DuoNeb (3:1) (2.5 mg - 0.5 mg) 3 ml Route: Nebulizer; rr5 Disposition: 09:33 Co-signature as Attending Physician, Abrahan Muhammad MD I agree with the assessment and wa plan of care. Chart complete. Disposition: 10/25/18 07:25 Discharged to Home. Impression: Bronchitis, not specified as acute or chronic. - Condition is Stable. - Discharge Instructions: Acute Bronchitis, [id number], Viral Respiratory Infection, [id number]. - Prescriptions for Prednisone 20 mg Oral Tablet - take 1 tablet by ORAL route once daily for 5 days; 5 tablet. Tessalon Perles 100 mg Oral Capsule - take 1 capsule by ORAL route every 8 hours As needed; 15 capsule. Albuterol Sulfate 90 mcg/actuation - inhale 1-2 puff by INHALATION route every 4-6 hours; 1 Inhaler. Albuterol Sulfate 2.5 mg /3 mL (0.083 %) Inhalation Solution for Nebulization - inhale 1 unit by NEBULIZATION route every 8 hours As needed; 1 box. Zithromax Z- Demetrius 250 mg Oral Tablet - take 1 tablet by ORAL route as directed for 5 days Day 1 - take two (2) tablets one time. Day 2, 3, 4 , 5 take one (1) tablet once daily.; 6 tablet. - Medication Reconciliation Form, Thank You Letter, Antibiotic Education, Prescription Opioid Use, Work release form form. - Follow up: Emergency Department; When: As needed; Reason: Worsening of condition. Follow up: Private Physician; When: 2 - 3 days; Reason: Recheck today's complaints, Continuance of care, Re-evaluation by your physician. Signatures: Dispatcher [employer] EDMS YasirBullGinger, JOHANNA-C ENTRY LEVEL MANAGEMENT-Bertinb Thaddeus Hussein RN RN sg Abrahan Muhammad MD MD wa Roque, Raymond, RN RN rr5 Corrections: (The following items were deleted from the chart) 07:39 07:25 10/25/2018 07:25 Discharged to Home. Impression: Bronchitis, not specified as sg acute or chronic. Condition is Stable. Forms are Medication Reconciliation Form, Thank You Letter, Antibiotic Education, Prescription Opioid Use. Follow up: Emergency Department; When: As needed; Reason: Worsening of condition. Follow up: Private Physician; When: 2 - 3 days; Reason: Recheck today's complaints, Continuance of care, Re-evaluation by your physician. kb
[2018-10-25 07:57] VITALS: BP 139/85; TEMP 98.1; O2SAT 98
--- NOTE | 2018-10-25 08:49 | RAD REPORT ---
EXAM DESCRIPTION: RAD - Chest Pa And Lat (2 Views) - 10/25/2018 6:49 am CLINICAL HISTORY: Cough;Congestion Chest pain. COMPARISON: Chest Single View dated 02/10/2017; CHEST PA AND LAT 2 VIEW dated 05/17/2015; CHEST PA AN D LAT 2 VIEW dated 08/10/2013; CHEST PA AND LAT 2 VIEW dated 01/06/2013 FINDINGS: The lungs are clear. The heart is normal in size. No displaced fractures. IMPRESSION: No acute or concerning finding suspected.
== END 2018-10-25 07:39 | disposition home or self-care (01) ==
LOC: ER 06:20
DX: J40 Bronchitis, not specified as acute or chronic (principal); Z72.0 Tobacco use
CPT/HCPCS: 71046; 87070; 87081; 94640; 99284